=== PATIENT | female | born 1975 | race Caucasian/White ===

== ENCOUNTER 2017-04-06 12:20 | Emergency (ER) | payer BC ==
[2017-04-06] MEDS ORDERED: ASPIRIN 325 MG TABLET PO ONE (12:39)
--- NOTE | 2017-04-06 12:40 | ER Document Report ---
ED Medical Screen (RME) - General Chief Complaint: Blood Pressure Problem Stated Complaint: HEADACHES/CHEST DISCOMFORT Time Seen by Provider: 04/06/17 12:38 Mode of Arrival: Ambulatory Information source: Patient TRAVEL OUTSIDE OF THE [place] IN LAST 30 DAYS: No - HPI Patient complains to provider of: CP, elevated BP Onset: Other - pt recently started on BP meds with rising BP's over the past few days and CP starting this am - Related Data Allergies/Adverse Reactions: Penicillins Allergy (Verified 04/06/17 12:22) Past Medical History - Social History Chew tobacco use (# tins/day): No Frequency of alcohol use: None Drug Abuse: None - Past Medical History Cardiac Medical History: Reports: Hx Heart Attack - 2004, Hx Hypertension Endocrine Medical History: Comment Only: Hx Diabetes Mellitus Type 2 - gestational DM Renal/ Medical History: Reports: Hx Peritoneal Dialysis Past Surgical History: Reports: Hx Breast Surgery - augmentation, Hx Cholecystectomy, Hx Tubal Ligation Physical Exam - Vital signs Vitals: Temp Pulse Resp BP Pulse Ox 98.0 F 89 20 143/98 H 100 04/06/17 12:27 04/06/17 12:27 04/06/17 12:27 04/06/17 12:27 04/06/17 12:27 Course - Vital Signs Vital signs: Temp Pulse Resp BP Pulse Ox 98.0 F 89 20 143/98 H 100 04/06/17 12:27 04/06/17 12:27 04/06/17 12:27 04/06/17 12:27 04/06/17 12:27
--- NOTE | 2017-04-06 13:26 | EKG REPORT ---
SEVERITY:- BORDERLINE ECG - SINUS RHYTHM PROBABLE LEFT ATRIAL ABNORMALITY : Confirmed by: Lavell Washington MD 06-Apr-2017 13:25:13
[2017-04-06 13:31] LABS: ABSOLUTE BASOPHILS # (AUTO) 0.1 10^3/uL (0.0-0.2); ABSOLUTE MONOCYTES (AUTO) 0.4 10^3/uL (0.1-1.4); ABSOLUTE NEUT (AUTO) 1.9 10^3/uL (1.7-8.2); BASOPHILS % (AUTO) 1.2 % (0-2); EOSINOPHILS % (AUTO) 1.1 % (0-6); HEMATOCRIT 38.9 % (36.0-47.0); HEMOGLOBIN 13.7 g/dL (12.0-15.5); LYMPHOCYTES % (AUTO) 44.7 % (13-45); MEAN CORPUSCULAR HGB CONC 35.2 g/dL (32.0-36.0); MEAN CORPUSCULAR VOLUME 85 fl (80-97); MONOCYTES % (AUTO) 9.4 % (3-13); PLATELET COUNT 315 10^3/uL (150-450); RED BLOOD COUNT 4.56 10^6/uL (3.72-5.28); RED CELL DISTRIBUTION WIDTH 12.7 % (11.5-14.0); SEGMENTED NEUTROPHILS % (AUTO) 43.6 % (42-78); TOTAL CELLS COUNTED % (AUTO) 100 %; WHITE BLOOD COUNT 4.4 10^3/uL (4.0-10.5)
--- NOTE | 2017-04-06 13:36 | RADIOLOGY REPORT (SQ) ---
EXAM DESCRIPTION: CHEST PA/LAT COMPLETED DATE/TIME: 04/06/2017 12:58 pm REASON FOR STUDY: cp COMPARISON: Two-view chest 12/30/2013, 11/29/2007 EXAM PARAMETERS: NUMBER OF VIEWS: two views TECHNIQUE: Digital Frontal and Lateral radiographic views of the chest acquired. RADIATION DOSE: NA LIMITATIONS: none FINDINGS: LUNGS AND PLEURA: No opacities, masses or pneumothorax. No pleural effusion. MEDIASTINUM AND HILAR STRUCTURES: No masses or contour abnormalities. HEART AND VASCULAR STRUCTURES: Heart normal size. No evidence for failure. BONES: No acute findings. HARDWARE: Bilateral breast implants. Surgical clips right upper quadrant. OTHER: No other significant finding. IMPRESSION: NO SIGNIFICANT RADIOGRAPHIC FINDING IN THE CHEST. TECHNICAL DOCUMENTATION: JOB ID: [id number] [id number]- All Rights Reserved
[2017-04-06 13:52] LABS: ALANINE AMINOTRANSFERASE 28 U/L (9-52); ALBUMIN 4.8 g/dL (3.5-5.0); ALKALINE PHOSPHATASE 56 U/L (38-126); ANION GAP 9 (5-19); ASPARTATE AMINO TRANSFERASE 19 U/L (14-36); BILIRUBIN,DIRECT 0.2 mg/dL (0.0-0.4); BILIRUBIN,TOTAL 0.5 mg/dL (0.2-1.3); BLOOD UREA NITROGEN 9 mg/dL (7-20); CALCIUM 10.4 mg/dL (8.4-10.2); CARBON DIOXIDE 30 mmol/L (22-30); CHLORIDE 99 mmol/L (98-107); CREATINE KINASE 41 U/L (30-135); GLUCOSE 109 mg/dL (75-110); POTASSIUM 3.5 mmol/L (3.6-5.0); SODIUM 138.4 mmol/L (137-145); TOTAL PROTEIN 7.4 g/dL (6.3-8.2)
[2017-04-06 14:03] LABS: CREATINE KINASE MB 0.23 ng/mL (<4.55)
[2017-04-06 14:05] LABS: TROPONIN I < 0.012 ng/mL
--- NOTE | 2017-04-06 14:47 | ER Document Report ---
ED Blood Pressure Problem - General Mode of Arrival: Ambulatory Information source: Patient TRAVEL OUTSIDE OF THE [place] IN LAST 30 DAYS: No <BABS MARTINES - Last Filed: 04/06/17 15:30> <MARTI BUTT - Last Filed: 04/06/17 23:35> - General Chief Complaint: Blood Pressure Problem Stated Complaint: HEADACHES/CHEST DISCOMFORT Time Seen by Provider: 04/06/17 12:38 Notes: Patient is a 41-year-old female who presents to the emergency department today with complaints of elevated blood pressures. Patient was started on blood pressure medication, HCTZ 12.5 mg for the first time on 03/21/2017. Patient had been keeping a log of her pressures at home which had been running in the 130- 140/90-100s and she gave them to her doctor today who told her to come to emergency department. Patient complains of a headache which she has had for several days. Patient denies any cough or congestion. (BABS MARTINES) - Related Data Allergies/Adverse Reactions: Penicillins Allergy (Verified 04/06/17 12:22) Past Medical History - General Information source: Patient - Social History Smoking Status: Never Smoker Cigarette use (# per day): No Chew tobacco use (# tins/day): No Frequency of alcohol use: None Drug Abuse: None Lives with: Family Family History: Reviewed & Not Pertinent Patient has suicidal ideation: No Patient has homicidal ideation: No - Past Medical History Cardiac Medical History: Reports: Hx Heart Attack - 2005, Hx Hypertension Endocrine Medical History: Comment Only: Hx Diabetes Mellitus Type 2 - gestational DM Renal/ Medical History: Reports: Hx Peritoneal Dialysis Past Surgical History: Reports: Hx Breast Surgery - augmentation, Hx Cholecystectomy, Hx Tubal Ligation <BABS MARTINES - Last Filed: 04/06/17 15:30> Review of Systems - Review of Systems Constitutional: No symptoms reported EENT: denies: Nose congestion Cardiovascular: See HPI, Other - elevated blood pressures Respiratory: denies: Cough Gastrointestinal: No symptoms reported Genitourinary: No symptoms reported Female Genitourinary: No symptoms reported Musculoskeletal: No symptoms reported Skin: No symptoms reported Hematologic/Lymphatic: No symptoms reported Neurological/Psychological: See HPI, Headaches -: Yes All other systems reviewed and negative <BABS MARTINES - Last Filed: 04/06/17 15:30> Physical Exam <BABS MARTINES - Last Filed: 04/06/17 15:30> <FILOMENAMARTI Mosher - Last Filed: 04/06/17 23:35> - Vital signs Vitals: Temp Pulse Resp BP Pulse Ox 98.0 F 89 20 143/98 H 100 04/06/17 12:27 04/06/17 12:27 04/06/17 12:27 04/06/17 12:27 04/06/17 12:27 - Notes Notes: Physical Exam: General: Alert, appears well. HEENT: Normocephalic. Atraumatic. PERRL. Extraocular movements intact. Oropharynx clear. Neck: Supple. Non-tender. Respiratory: No respiratory distress. Clear and equal breath sounds bilaterally. Cardiovascular: Regular rate and rhythm. Abdominal: Normal Inspection. Non-tender. No distension. Normal Bowel Sounds. Back: Non-tender. No deformity or step off. Extremities: Moves all four extremities. Upper extremities: Normal inspection. Normal ROM. Lower extremities: Normal inspection. No edema. Normal ROM. Neurological: Grossly intact bilaterally. Normal cognition. AAOx4. Normal speech. Psychological: Normal affect. Normal Mood. Skin: Warm. Dry. Normal color. (LAURYN MARTINESON) Course - Laboratory Result Diagrams: 04/06/17 13:10 04/06/17 13:10 <BABS MARTINES - Last Filed: 04/06/17 15:30> - Laboratory Result Diagrams: 04/06/17 13:10 04/06/17 13:10 - Diagnostic Test Radiology reviewed: Reports reviewed - EKG Interpretation by [facility] EKG shows normal: Sinus rhythm Rate: Normal Rhythm: NSR <FILOMENAMARTI - Last Filed: 04/06/17 23:35> - Re-evaluation Re-evalutation: 04/06/17 14:47 Patient well-appearing in no acute distress presents from family doctor due to concern of high blood pressure. Bedside patient's diastolic is 139/103. Do not feel precipitately dropping her blood pressure at this time would be beneficial. She is in no acute distress with normal labs other than borderline low potassium. Discussed with patient need to titrate her current blood pressure medications to treat desired blood pressure. Advised to take potassium supplementation 20 mEq a day [id number] as well as increase her hydrochlorothiazide by one half pills for 1. Advised to take blood pressure every other day twice a day and provide long to family doctor. Patient states that she has been having intermittent headaches but they do resolve with Tylenol. (MARTI BUTT) - Vital Signs Vital signs: Temp Pulse Resp BP Pulse Ox 98.0 F 89 18 118/87 H 100 04/06/17 12:27 04/06/17 12:27 04/06/17 15:18 04/06/17 15:18 04/06/17 15:18 - Laboratory Laboratory results interpreted by me: 04/06/17 13:10 Potassium 3.5 L Calcium 10.4 H Discharge <BABS MATRINES - Last Filed: 04/06/17 15:30> <MARTI BUTT - Last Filed: 04/06/17 23:35> - Discharge Clinical Impression: Hypertension Qualifiers: Hypertension type: unspecified Qualified Code(s): I10 - Essential (primary) hypertension Condition: Good Disposition: HOME, SELF-CARE Additional Instructions: Please follow-up with your primary care physician in 1 week. While your blood pressure twice a day every other day. Take potassium supplementation as prescribed. Increase your hydrochlorothiazide to one and half tablets a day. Prescriptions: Potassium Bicarbonate/Cit AC [Potassium 25 Meq Tab Eff] 25 meq PO DAILY #30 tablet.eff Forms: Elevated Blood Pressure Referrals: SIMON TEJADA MD [Primary Care Provider] - Follow up as needed Scribe Attestation: 04/06/17 23:35 I personally performed the services described documentation, reviewed and edited the documentation which was dictated to describe my presence, and it accurately records my words and actions. (MARTI BUTT) Scribe Documentation - Scribe Written by Scribe:: James Wei, 04/06/2017 1541 acting as scribe for :: Filomena <BABS MARTINES - Last Filed: 04/06/17 15:30>
[2017-04-06 15:19] VITALS: BP 118/87
== END 2017-04-06 15:30 | disposition home or self-care (01) ==
LOC: ER 12:20
DX: I10 Essential (primary) hypertension (principal); R51 Headache; Z88.0 Allergy status to penicillin; I25.2 Old myocardial infarction
CPT/HCPCS: 36415; 71046; 80053; 82550; 82553; 84484; 85025; 93005; 93010; 99284